=== PATIENT | female | born 1995 | race African-American/Black ===

== ENCOUNTER 2016-11-14 13:23 | Emergency (ER) | payer MEDICAID ==
[~2016-11-14] VITALS: Ht 157.5 cm; Wt 51.0 kg
[2016-11-14 13:29] VITALS: BP 109/63
[2016-11-14] MEDS ORDERED: IBUPROFEN 800MG TABLET PO ONE (14:15)
== END 2016-11-14 17:14 | disposition home or self-care (01) ==
LOC: ER 15:34
DX: S46.911A Strain of unspecified muscle, fascia and tendon at shoulder and upper arm level, right arm, initial encounter (principal); Y93.72 Activity, wrestling; Y99.9 Unspecified external cause status; Y92.89 Other specified places as the place of occurrence of the external cause
CPT/HCPCS: 73030; 73060; 73080; 99284; A4565